=== PATIENT | female | born 1975 | race Caucasian/White ===

== ENCOUNTER → 2025-02-23 11:13 | Outpatient (CLI) | payer OTHER, SELFPAY ==
--- NOTE | ~2025-02-23 | XR_ITS ---
Clinical history:Right rib pain for 2 weeks. 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 No pneumothorax. No pleural effusion. No free air the diaphragm. No focal pulmonary consolidation. Minimally displaced right lateral seventh, eighth and ninth rib fractures. IMPRESSION: 1. Minimally displaced right lateral seventh, eighth and ninth acute rib fractures. 2. No acute pulmonary process. If symptoms persist or worsen, consider a short-term follow-up study or additional imaging for further assessment. Reviewed, dictated and finalized at location [facility]. IMPRESSION: 1. Minimally displaced right lateral seventh, eighth and ninth acute rib fractu res. 2. No acute pulmonary process. If symptoms persist or worsen, consider a short-term follow-up study or additio nal imaging for further assessment.
== END ==
PROVIDERS: PCP Nurse Practitioner; Visit Provider Nurse Practitioner
DX: R07.81 Pleurodynia (principal); S22.41XA Multiple fractures of ribs, right side, initial encounter for closed fracture; X58.XXXA Exposure to other specified factors, initial encounter
CPT/HCPCS: 71111

== ENCOUNTER → 2025-04-19 10:31 | Outpatient (CLI) | payer OTHER, SELFPAY ==
--- NOTE | ~2025-04-19 | XR_ITS ---
Clinical history:Fractures of ribs, right side EXAM:X-ray of the bilateral with PA chest TECHNIQUE:6 images of the ribs were obtained. A single frontal image of the chest was obtained. Comparisons:02/23/2025 FINDINGS: Heart is not enlarged. No pneumothorax. No pleural effusion. No free air the diaphragm. No focal pulmonary consolidation. Subacute healing fractures of the minimally displaced right lateral seventh, eighth and ninth rib fractures. IMPRESSION: 1. Subacute healing fractures of the minimally displaced right lateral seventh, eighth and ninth rib fractures. 2. No acute pulmonary process identified. Reviewed, dictated and finalized at location [facility].
== END ==
PROVIDERS: PCP Nurse Practitioner; Visit Provider Nurse Practitioner
DX: S22.49XA Multiple fractures of ribs, unspecified side, initial encounter for closed fracture (principal); X58.XXXA Exposure to other specified factors, initial encounter
CPT/HCPCS: 71111